=== PATIENT | female | born 1965 ===

== ENCOUNTER → 2022-10-18 | Outpatient (CLI) | payer SELFPAY | END | disposition home or self-care (01) | DX: G25.81 Restless legs syndrome (principal) ==

== ENCOUNTER → 2022-12-09 | Outpatient (CLI) | payer OTHER | END | disposition home or self-care (01) | LOC: LAB SHORT 14:30 | DX: L97.409 Non-pressure chronic ulcer of unspecified heel and midfoot with unspecified severity (principal); R06.09 Other forms of dyspnea | CPT/HCPCS: 83880; 85379; 85651 ==